=== PATIENT | male | born 1995 | race Caucasian/White ===

== ENCOUNTER 2017-08-17 00:18 | Emergency (ER) | payer MEDICAID, OTHER, SELFPAY ==
[~2017-08-17] VITALS: Ht 152.4 cm; Wt 85.0 kg
[2017-08-17 01:34] VITALS: BP 132/72
== END 2017-08-17 02:05 | disposition home or self-care (01) ==
LOC: ED 01:27
DX: S06.0X0A Concussion without loss of consciousness, initial encounter (principal); S09.90XA Unspecified injury of head, initial encounter; F43.24 Adjustment disorder with disturbance of conduct; F91.3 Oppositional defiant disorder; X58.XXXA Exposure to other specified factors, initial encounter; Y93.89 Activity, other specified; Y92.009 Unspecified place in unspecified non-institutional (private) residence as the place of occurrence of the external cause; Y99.8 Other external cause status
CPT/HCPCS: 70450; 99284

== ENCOUNTER 2020-03-11 08:12 | Day surgery (SDC) | payer MEDICAID ==
[~2020-03-11] VITALS: Ht 154.9 cm; Wt 159.0 kg
[2020-03-11] MEDS ORDERED: LACTATED RINGERS 1,000 ML IV SCH (08:49)
[2020-03-11 08:52] VITALS: BP 133/97
[2020-03-11] MEDS ORDERED: CHLORHEXIDINE 15 ML UDC ONE (08:56)
[2020-03-11] MEDS ORDERED: CHLORHEXIDINE 15 ML UDC MM ONE (09:00)
[2020-03-11] MEDS ORDERED: METF500T17 PO (09:02)
[2020-03-11] MEDS ORDERED: LURA80TA PO (09:02)
[2020-03-11] MEDS ORDERED: GABA-827 PO (09:02)
[2020-03-11] MEDS ORDERED: BUSP10TA PO (09:02)
[2020-03-11] MEDS ORDERED: OMEP40CA42 PO (09:02)
[2020-03-11] MEDS ORDERED: HYDROXAZINE PO (09:02)
[2020-03-11] MEDS ORDERED: LAMO300T2 PO (09:03)
[2020-03-11] MEDS ORDERED: ALBUTEROL IH (09:22)
[2020-03-11 09:24] LABS: ALANINE AMINOTRANSFERASE 142 U/L (12-78); ANION GAP 11 mmol/L (5-15); CALCIUM 9.6 mg/dL (8.5-10.1); CHLORIDE 100 mmol/L (98-107); CREATININE 0.92 mg/dL (0.7-1.3)
[2020-03-11 09:27] LABS: ALKALINE PHOSPHATASE 80 U/L (45-117); BILIRUBIN,TOTAL 1.9 mg/dL (0.2-1.0); TOTAL PROTEIN 7.4 g/dL (6.4-8.2)
[2020-03-11] MEDS ORDERED: PROPOFOL 10 MG/ML, 20ML ONE ×2 (09:44)
== END 2020-03-11 12:20 | disposition home or self-care (01) ==
LOC: OUT 08:12
PROVIDERS: ATTEND Internal Medicine
DX: R19.5 Other fecal abnormalities (principal); K29.50 Unspecified chronic gastritis without bleeding; E66.01 Morbid (severe) obesity due to excess calories; F32.9 Major depressive disorder, single episode, unspecified; E11.9 Type 2 diabetes mellitus without complications; Z20.828 Contact with and (suspected) exposure to other viral communicable diseases; F41.9 Anxiety disorder, unspecified; J45.909 Unspecified asthma, uncomplicated; F12.90 Cannabis use, unspecified, uncomplicated; Z68.44 Body mass index [BMI] 60.0-69.9, adult; Z88.8 Allergy status to other drugs, medicaments and biological substances; Z72.89 Other problems related to lifestyle; Z79.899 Other long term (current) drug therapy; Z87.891 Personal history of nicotine dependence; Z82.49 Family history of ischemic heart disease and other diseases of the circulatory system
CPT/HCPCS: 43239; 45380; 80053; 82962; 87635; 88305; J2704; J7120